=== PATIENT | female | born 1960 | race Caucasian/White ===

== ENCOUNTER → 2017-03-14 13:12 | Outpatient (CLI) | payer BC | END | disposition home or self-care (01) | LOC: D.LABREF 13:12 | DX: Z51.81 Encounter for therapeutic drug level monitoring (principal); Z79.2 Long term (current) use of antibiotics; M17.32 Unilateral post-traumatic osteoarthritis, left knee; M00.9 Pyogenic arthritis, unspecified ==

== ENCOUNTER → 2017-03-15 13:22 | Outpatient (CLI) | payer BC ==
[2017-03-15 16:11] LABS: BASOPHILS 0.2 % (0-2); EOSINOPHILS 2.1 % (0-7); HEMATOCRIT 32.4 % (36.0-48.0); HEMOGLOBIN 10.3 g/dL (12-16); IMMATURE GRANULOCYTES 0.5 % (0-5); LYMPHOCYTES 28.7 % (15-50); MCH 30.2 pg (26.0-34.0); MCHC 31.8 g/dL (31.0-37.0); MEAN PLATELET VOLUME 9.7 fL (7.4-10.4); MONOCYTES 6.4 % (2-11); NEUTROPHILS 62.1 % (40-80); PLATELET COUNT 444 10x3/uL (130-400); RBC 3.41 10x6/uL (4.00-5.40); RDW 14.1 % (11.5-14.5); WBC 10.9 10x3/uL (4.8-10.8)
== END | disposition home or self-care (01) ==
LOC: D.LABREF 13:22
PROVIDERS: Orthopaedic Surgery
DX: M86.9 Osteomyelitis, unspecified (principal)

== ENCOUNTER → 2017-03-20 14:49 | Outpatient (CLI) | payer BC ==
[2017-03-20 16:08] LABS: BASOPHILS 0.2 % (0-2); HEMATOCRIT 34.1 % (36.0-48.0); HEMOGLOBIN 10.7 g/dL (12-16); IMMATURE GRANULOCYTES 0.5 % (0-5); MCH 29.9 pg (26.0-34.0); MCHC 31.4 g/dL (31.0-37.0); MCV 95.3 fL (80.0-100.0); MEAN PLATELET VOLUME 9.2 fL (7.4-10.4); MONOCYTES 8.6 % (2-11); NEUTROPHILS 56.7 % (40-80); PLATELET COUNT 478 10x3/uL (130-400); RBC 3.58 10x6/uL (4.00-5.40); WBC 8.4 10x3/uL (4.8-10.8)
[2017-03-20 16:30] LABS: CREATININE - SERUM 0.9 mg/dL (0.6-1.3)
== END | disposition home or self-care (01) ==
LOC: D.LABREF 14:49
PROVIDERS: Family Medicine Adult Medicine
DX: Z79.2 Long term (current) use of antibiotics (principal)

== ENCOUNTER → 2017-03-27 11:27 | Outpatient (CLI) | payer BC ==
[2017-03-27 12:55] LABS: BASOPHILS 0.3 % (0-2); EOSINOPHILS 2.2 % (0-7); HEMATOCRIT 33.9 % (36.0-48.0); IMMATURE GRANULOCYTES 0.4 % (0-5); LYMPHOCYTES 29.7 % (15-50); MCH 30.1 pg (26.0-34.0); MCHC 32.4 g/dL (31.0-37.0); MCV 92.9 fL (80.0-100.0); MEAN PLATELET VOLUME 9.5 fL (7.4-10.4); NEUTROPHILS 61.4 % (40-80); RBC 3.65 10x6/uL (4.00-5.40); RDW 14.3 % (11.5-14.5); WBC 11.2 10x3/uL (4.8-10.8)
[2017-03-27 13:04] LABS: PLATELET COUNT 380 10x3/uL (130-400)
== END | disposition home or self-care (01) ==
LOC: D.LABREF 11:27
PROVIDERS: Orthopaedic Surgery
DX: B19.9 Unspecified viral hepatitis without hepatic coma (principal); M00.9 Pyogenic arthritis, unspecified

== ENCOUNTER → 2017-04-03 11:57 | Outpatient (CLI) | payer BC ==
[2017-04-03 12:09] LABS: BASOPHILS 0.2 % (0-2); EOSINOPHILS 3.6 % (0-7); HEMATOCRIT 36.2 % (36.0-48.0); HEMOGLOBIN 11.5 g/dL (12-16); IMMATURE GRANULOCYTES 0.3 % (0-5); LYMPHOCYTES 26.8 % (15-50); MCH 29.7 pg (26.0-34.0); MCHC 31.8 g/dL (31.0-37.0); MCV 93.5 fL (80.0-100.0); MEAN PLATELET VOLUME 9.6 fL (7.4-10.4); MONOCYTES 7.2 % (2-11); NEUTROPHILS 61.9 % (40-80); PLATELET COUNT 383 10x3/uL (130-400); RBC 3.87 10x6/uL (4.00-5.40); RDW 14.2 % (11.5-14.5); WBC 8.9 10x3/uL (4.8-10.8)
== END | disposition home or self-care (01) ==
LOC: D.LAB 11:57
PROVIDERS: Family Medicine Adult Medicine
DX: Z51.81 Encounter for therapeutic drug level monitoring (principal); Z79.2 Long term (current) use of antibiotics; I10 Essential (primary) hypertension

== ENCOUNTER → 2017-04-10 17:42 | Outpatient (CLI) | payer BC ==
[2017-04-10 18:02] LABS: BASOPHILS 0.2 % (0-2); EOSINOPHILS 2.1 % (0-7); HEMATOCRIT 37.3 % (36.0-48.0); HEMOGLOBIN 11.8 g/dL (12-16); IMMATURE GRANULOCYTES 0.3 % (0-5); LYMPHOCYTES 23.8 % (15-50); MCH 29.9 pg (26.0-34.0); MCHC 31.6 g/dL (31.0-37.0); MCV 94.4 fL (80.0-100.0); MEAN PLATELET VOLUME 9.7 fL (7.4-10.4); MONOCYTES 5.5 % (2-11); NEUTROPHILS 68.1 % (40-80); PLATELET COUNT 351 10x3/uL (130-400); RBC 3.95 10x6/uL (4.00-5.40); RDW 14.3 % (11.5-14.5); WBC 11.6 10x3/uL (4.8-10.8)
== END | disposition home or self-care (01) ==
LOC: D.LABREF 17:42
PROVIDERS: Family Medicine Adult Medicine
DX: Z51.81 Encounter for therapeutic drug level monitoring (principal); M00.9 Pyogenic arthritis, unspecified

== ENCOUNTER → 2017-04-17 11:26 | Outpatient (CLI) | payer BC ==
[2017-04-17 12:28] LABS: BASOPHILS 0.2 % (0-2); EOSINOPHILS 2.7 % (0-7); HEMATOCRIT 39.9 % (36.0-48.0); HEMOGLOBIN 12.7 g/dL (12-16); IMMATURE GRANULOCYTES 0.4 % (0-5); LYMPHOCYTES 27.3 % (15-50); MCHC 31.8 g/dL (31.0-37.0); MCV 94.3 fL (80.0-100.0); MEAN PLATELET VOLUME 9.6 fL (7.4-10.4); MONOCYTES 6.8 % (2-11); NEUTROPHILS 62.6 % (40-80); PLATELET COUNT 351 10x3/uL (130-400); RBC 4.23 10x6/uL (4.00-5.40); RDW 14.5 % (11.5-14.5); WBC 9.4 10x3/uL (4.8-10.8)
== END | disposition home or self-care (01) ==
LOC: D.LABREF 11:26
PROVIDERS: Family Medicine Adult Medicine
DX: Z51.81 Encounter for therapeutic drug level monitoring (principal); Z79.2 Long term (current) use of antibiotics

== ENCOUNTER → 2017-05-15 12:30 | Outpatient (CLI) | payer BC ==
[2017-05-15 13:11] LABS: ALBUMIN 3.5 g/dL (3.4-5.0); ANION GAP 14.2 mmol/L (8-16); BILIRUBIN - TOTAL 0.32 mg/dL (0.2-1.3); C-REACTIVE PROTEIN 4.5 mg/dL (0.0-0.9); CARBON DIOXIDE 27.8 mmol/L (21.0-32.0); CREATININE - SERUM 0.9 mg/dL (0.6-1.3); PROTEIN - SERUM 8.6 g/dL (6.4-8.2)
[2017-05-15 13:19] LABS: BASOPHILS 0.2 % (0-2); EOSINOPHILS 2.2 % (0-7); HEMATOCRIT 39.1 % (36.0-48.0); HEMOGLOBIN 12.7 g/dL (12-16); IMMATURE GRANULOCYTES 0.2 % (0-5); LYMPHOCYTES 23.9 % (15-50); MCH 29.7 pg (26.0-34.0); MCHC 32.5 g/dL (31.0-37.0); MCV 91.6 fL (80.0-100.0); MEAN PLATELET VOLUME 9.4 fL (7.4-10.4); MONOCYTES 5.4 % (2-11); NEUTROPHILS 68.1 % (40-80); PLATELET COUNT 328 10x3/uL (130-400); RBC 4.27 10x6/uL (4.00-5.40); RDW 14.4 % (11.5-14.5); WBC 12.8 10x3/uL (4.8-10.8)
[2017-05-15 14:21] LABS: ERYTHROCYTE SEDIMENTATION RATE 35 mm/hr (0-30)
[2017-05-16 11:18] LABS: ANA REFLEX - DIRECT Negative (Negative)
== END | disposition home or self-care (01) ==
LOC: D.LAB 12:30
PROVIDERS: Orthopaedic Surgery
DX: M12.80 Other specific arthropathies, not elsewhere classified, unspecified site (principal)

== ENCOUNTER → 2017-06-12 14:20 | Outpatient (CLI) | payer MEDICAID | END | disposition home or self-care (01) | LOC: D.MRI 05-21 15:30 | DX: M25.531 Pain in right wrist (principal) ==

== ENCOUNTER → 2019-04-22 12:53 | Outpatient (CLI) | payer OTHER | END | disposition home or self-care (01) | LOC: D.MRI 12:53 | PROVIDERS: ATTEND Clinical Nurse Specialist Family Health | DX: M25.531 Pain in right wrist (principal) ==